=== PATIENT | male | born 1985 | race Caucasian/White ===

== ENCOUNTER 2019-03-18 13:13 | Emergency (ER) | payer MEDICAID ==
[~2019-03-18] VITALS: Ht 182.9 cm; Wt 140.9 kg
[2019-03-18 13:20] VITALS: Ht 182.9 cm; Wt 140.9 kg
[2019-03-18] MEDS ORDERED: ADDERALL 5 MG TA5 M1 (13:20)
[2019-03-18] MEDS ORDERED: TRAZODONE HCL150 MG (13:20)
[2019-03-18 15:53] LABS: BASOPHILS 0.2 % (0-2); EOSINOPHILS 1.6 % (0-7); HEMATOCRIT 43.4 % (42.0-54.0); HEMOGLOBIN 14.7 g/dL (13.5-17.5); IMMATURE GRANULOCYTES 0.9 % (0-5); MCH 31.9 pg (26.0-34.0); MCHC 33.9 g/dL (31.0-37.0); MCV 94.1 fL (80.0-100.0); MEAN PLATELET VOLUME 9.4 fL (7.4-10.4); MONOCYTES 5.7 % (2-11); NEUTROPHILS 72.6 % (40-80); PLATELET COUNT 255 10x3/uL (130-400); RBC 4.61 10x6/uL (4.20-6.10); RDW 15.4 % (11.5-14.5); WBC 12.9 10x3/uL (4.8-10.8)
[2019-03-18 16:00] LABS: CALC OSMOLALITY 286 mosm/kg (275-300); CALCIUM 8.8 mg/dL (8.5-10.1); CARBON DIOXIDE 26.5 mmol/L (21.0-32.0); CHLORIDE - SERUM 105 mmol/L (98-107); GLUCOSE 95 mg/dL (74-106); POTASSIUM - SERUM 3.6 mmol/L (3.5-5.1); SODIUM 143 mmol/L (136-145); UREA NITROGEN 18 mg/dL (7-18); eGFR NON AFRICAN AMERICAN > 90 mL/min (90-120)
[2019-03-18 16:07] LABS: ALBUMIN 3.8 g/dL (3.4-5.0); ALKALINE PHOSPHATASE 105 U/L (46-116); ALT (SGPT) 57 U/L (10-68); BILIRUBIN - TOTAL 0.68 mg/dL (0.2-1.3); PROTEIN - SERUM 7.7 g/dL (6.4-8.2)
[2019-03-18] MEDS ORDERED: GUAIFEN-CODEINE10 ML PO (17:45)
[2019-03-18] MEDS ORDERED: AUGMENTIN 875-11 TAB PO (17:45)
[2019-03-18 18:21] VITALS: BP 144/95
== END 2019-03-18 18:23 | disposition home or self-care (01) ==
LOC: D.ER 13:13
PROVIDERS: Emergency Medicine
DX: R07.89 Other chest pain (principal); J98.4 Other disorders of lung; F90.9 Attention-deficit hyperactivity disorder, unspecified type; R05 Cough